=== PATIENT | female | born 1980 | race Caucasian/White ===

== ENCOUNTER 2017-05-16 15:44 | Emergency (ER) | payer BC ==
[~2017-05-16] VITALS: Ht 162.6 cm; Wt 63.5 kg
--- NOTE | 2017-05-16 14:56 | Emergency Room Report ---
History of Present Illness General Source: Patient, EMS Present Illness HPI 36YOF BIBEMS with alleged witnessed first time seizure No previous history of seizure or syncope or heart disease Atraumatic Per daughter, patient walking around [place] (tourists) in the heat, not drinking water Was c/o dizziness, "not feeling well" Leaned on daughter in store, felt better in the cold then took 3 steps and "passed out" and was lowered to ground Had frothing at mouth, lifting legs in air C/o tongue pain Denies urinary incontinence Occurred 45 minutes ago. Patient alert and oriented now. Remembers the event. Allergies: Coded Allergies: No Known Allergies (Unverified , 05/16/17) Patient History Past Medical History: none Past Surgical History: none Pertinent Family History: none Social History: Denies: smoking, alcohol use, drug use Now: No Immunizations: UTD Reviewed Nursing Documentation: PMH: Agreed, PSxH: Agreed Review of Systems All Other Systems: negative except mentioned in HPI Physical Exam Sp02 EP Interpretation: reviewed, normal General Appearance: normal inspection, well appearing, no apparent distress, alert, GCS 15, non-toxic Head: normocephalic, atraumatic ENT: normal ENT inspection, hearing grossly normal, normal voice Neck: normal inspection, full range of motion, supple, no bony tend Respiratory: normal inspection, lungs clear, normal breath sounds, no respiratory distress, no retraction, no wheezing Cardiovascular #1: regular rate, rhythm, no edema Gastrointestinal: normal inspection, normal bowel sounds, non tender, soft, no guarding, no hernia Genitourinary: no CVA tenderness Musculoskeletal: normal inspection, back normal, normal range of motion, Arias' s Sign negative Neurologic: normal inspection, alert, responsive, speech normal Psychiatric: normal inspection, judgement/insight normal, mood/affect normal Skin: normal inspection, normal color, no rash Medical Decision Making Diagnostic Impression: Primary Impression: Vaso vagal episode ER Course Vasovagal episode Syncope vs seizure No trauma VSS. Afebrile. More likely vasovagal given precipitating dizziness, walking in the heat ECG is NSR. No ischemia IVF NS given No additional episodes in ED DC home Will f/up with PMD back in [place] when she returns home for Neurology referral Understands to go to nearest ER for recurrent episode EKG Diagnostic Results Rate: normal Rhythm: NSR ST Segments: no acute changes ASA given to the pt in ED: No Rhythm Strip Diag. Results EP Interpretation: yes Rate: 68 Rhythm: NSR, no PVC's, no ectopy Status: improved Disposition: HOME, SELF-CARE ADIN WHITESIDE M.D. May 16, 2017 14:56
[2017-05-16 16:25] VITALS: BP 105/63
[2017-05-16 17:35] VITALS: BP 103/59
[2017-05-16 17:36] VITALS: BP 103/59
--- NOTE | 2017-05-17 15:30 | Cardiology Report ---
APPROVED REPORT EKG Measurement Heart [id number] Normal sinus rhythm Normal ECG
== END 2017-05-16 17:40 | disposition home or self-care (01) ==
LOC: EDBD 15:44 → EMR 17:00
DX: R55 Syncope and collapse (principal); R42 Dizziness and giddiness
CPT/HCPCS: 36415; 93005; 96360; 96361; 99284; G0480; 80329